=== PATIENT | female | born 1960 | race Caucasian/White ===

== ENCOUNTER 2017-05-05 07:43 | Emergency (ER) | payer SELFPAY ==
[~2017-05-05] VITALS: Ht 157.5 cm; Wt 67.0 kg
[2017-05-05 07:48] VITALS: Ht 157.5 cm; Wt 67.0 kg
[2017-05-05] MEDS ORDERED: SOD CHLORIDE 0.9% 500 ML IV STA (08:16)
[2017-05-05] MEDS ORDERED: ONDANSETRON 4 MG INJ IV STA (08:16)
[2017-05-05] MEDS ORDERED: MECLIZINE 12.5 MG TAB PO ONE (08:30)
--- NOTE | 2017-05-05 08:45 | ERD ---
ER Documentation Chief Complaint Chief Complaint DIZZINESS AND N/V R EAR DISCOMFORT HPI Patient is a 56-year-old female with a past medical history of hypertension who presents ED for concerns of right ear fullness as well as dizziness and nausea and vomiting. Patient states 4 days ago she developed right ear fullness. Patient denies any ear pain or drainage. Patient states this morning around 1 AM she started to feel extremely nauseous and dizzy. Patient describes a room spinning sensation. Patient states with any positional changes her dizziness becomes worse. Patient does admit to 3 episodes of nonbloody nonbilious vomiting. Patient denies any fevers, chills, chest pain, shortness of breath, left upper extremity pain, LOC. Patient does admit to light sensitivity. Patient denies any headache. Patient denies any unilateral weakness, slurred speech, stool incontinence, urinary incontinence or dysphagia. Patient denies any abdominal pain or ROS All systems reviewed and are negative except as per history of present illness. Medications Home Meds Active Scripts Ondansetron (Ondansetron Odt) 4 Mg Tab.rapdis, 4 MG PO Q6H Y for NAUSEA AND/OR VOMITING, #10 TAB Prov:ASHLEY RODRIGUEZ PA-C 05/05/17 Meclizine Hcl* (Antivert*) 12.5 Mg Tab, 12.5 MG PO Q6H Y for DIZZINESS, #20 TAB Prov:ASHLEY RODRIGUEZ PA-C 05/05/17 Allergies Allergies: Coded Allergies: No Known Allergy (Unverified , 05/05/17) PMhx/Soc History of Surgery: No Anesthesia Reaction: No Hx Neurological Disorder: No Hx Respiratory Disorders: No Hx Cardiac Disorders: Yes (htn) Hx Psychiatric Problems: No Hx Miscellaneous Medical Probl: No Hx Alcohol Use: No Hx Substance Use: No Hx Tobacco Use: No Physical Exam Vitals Vital Signs Date Time Temp Pulse Resp B/P Pulse Ox O2 Delivery O2 Flow Rate FiO2 05/05/17 10:23 98.2 82 18 101/56 96 Room Air 05/05/17 07:48 97.7 67 18 121/75 96 Physical Exam GENERAL: Well-developed, well-nourished female. HEAD: Normocephalic, atraumatic. No deformities or ecchymosis. EYE: Pupils equal, round, and reactive to light. EOMs intact. No conjunctival erythema. No eye discharge. ENT: External ear without any masses or tenderness. Auditory canals clear bilaterally. TM visualized bilaterally, non-erythematous, non-bulging. Nasal mucosa pink with no discharge. Oropharynx is pink without any tonsillar erythema or exudates. No uvula deviation. No kissing tonsils. NECK: Supple. No meningismus. Normal ROM of the neck. LUNG: Clear to auscultation bilaterally. No rhonchi, wheezing, rales or coarse breath sounds. HEART: Regular rate and rhythm. No murmurs, rubs or gallops. EXTREMITIES: Equal pulses bilaterally. No peripheral clubbing, cyanosis or edema. No unilateral leg swelling. NEUROLOGIC: Alert and oriented x3, cooperative. Mood and affect appropriate to situation. Cranial nerves II through XII are grossly intact. Normal speech. Motor exam: 5/5 strength in upper and lower extremities. Sensory exam: Sensation intact to light touch on all four extremities. Cerebellar function exam: Rapid alternating movements intact. No dysmetria on uawqpz-ug-naow and mrfi-nb-mvcc test. Steady gait. No pronator drift. SKIN: Normal color. Warm and dry. No rashes or lesions. Result Diagram: 05/05/17 0830 05/05/17 0830 Results 24 hrs Laboratory Tests Test 05/05/17 08:30 White Blood Count 7.610^3/ul Red Blood Count 4.7510^6/ul Hemoglobin 13.4g/dl Hematocrit 41.0% Mean Corpuscular Volume 86.3fl Mean Corpuscular Hemoglobin 28.2pg Mean Corpuscular Hemoglobin Concent 32.7g/dl Red Cell Distribution Width 13.3% Platelet Count 53067^3/UL Mean Platelet Volume 10.0fl Neutrophils % 81.2% Lymphocytes % 15.5% Monocytes % 2.2% Eosinophils % 0.4% Basophils % 0.3% Nucleated Red Blood Cells % 0.0/100WBC Neutrophils # 6.110^3/ul Lymphocytes # 1.210^3/ul Monocytes # 0.210^3/ul Eosinophils # 0.010^3/ul Basophils # 0.010^3/ul Nucleated Red Blood Cells # 0.010^3/ul Sodium Level 141mmol/L Potassium Level 3.7mmol/L Chloride Level 103mmol/L Carbon Dioxide Level 25mmol/L Anion Gap 17 Blood Urea Nitrogen 17mg/dl Creatinine 0.61mg/dl Glucose Level 139mg/dl Calcium Level 9.4mg/dl Troponin I < 0.012ng/ml Current Medications Medications (Trade) Dose Ordered Sig/Link Route PRN Reason Start Time Stop Time Status Last Admin Dose Admin Sodium Chloride (NS) 500 ml @ 500 mls/hr Q1H STAT IV 05/05/17 08:16 05/05/17 09:15 DC 05/05/17 08:43 Ondansetron HCl (Zofran Inj) 4 mg ONCE STAT IV 05/05/17 08:16 05/05/17 08:20 DC 05/05/17 08:42 Meclizine HCl (Antivert) 12.5 mg ONCE ONCE PO 05/05/17 08:30 05/05/17 08:31 DC 05/05/17 08:43 Procedures/MDM ED COURSE: The patient was stable throughout ED course. I kept the patient and/or family informed of laboratory and diagnostic imaging results throughout the ED course. EKG: Read by Dr. Contreras, attending physician. EKG shows normal sinus rhythm at a rate of 60 bpm, incomplete right bundle branch block. No arrhythmias, acute ST elevations or T wave changes were noted. DIAGNOSTIC IMAGING: Read by radiologist. Patient: ROSETTA FLORIAN : 1960 Age: 56 Sex: F [id number] DOS: 05/05/17815 Ordering MD: ASHLEY RODRIGUEZ PA-C Location: [facility] Room/Bed: PROCEDURE: CT Brain without contrast. CLINICAL INDICATION: Dizziness. TECHNIQUE: A CT of the brain was performed on a [employer] Mo[employer] CT scanner utilizing a low dose technique with axial imaging from the skull base through the vertex without IV contrast. Multiplanar reformatted images were made. Images were reviewed on a PACS workstation. The CTDIvol is 44.6 mGy and the DLP is 630.2 mGycm. DICOM images are available. One or more of the following dose reduction techniques were used: Automated exposure control. Adjustment of the mA and/or kV according to patient size. Use of iterative reconstruction technique. COMPARISON: None FINDINGS: The fourth ventricle is normal in size. The third and lateral ventricles are normal in size and configuration. The brain parenchyma is normal. The visible portions of the globes and extraocular muscles are normal. The paranasal sinuses are clear. The mastoid air cells and internal auditory canals are normal. The bony calvarium is intact. IMPRESSION: 1. Negative CT scan of the brain without contrast. RPTAT:AAJJ Physician Antoinette Date Time Electronically viewed and signed by Melquiades Crisostomo Physician on 05/05/2017 09:18 JM/ CC: ASHLEY RODRIGUEZ PA-C PROCEDURES: None. MEDICATIONS GIVEN: IV fluids, Zofran, meclizine Patient tolerated medication well with no adverse reactions. MEDICAL DECISION MAKING: This is a 56-year-old female with a history of hypertension presents ED for concerns of right ear fullness, nausea, vomiting and dizziness. Vital signs were reviewed. Patient was afebrile. Patient was not hypoxic. Patient reported that her dizziness felt as if the room was spinning.The dizziness is worse with positional changes or movement. At rest, patient has minimal dizziness. The patient denied hearing loss, diplopia or dysphagia. Full neuro exam was normal. CT scan of the brain was unremarkable. Blood work was obtained. CBC showed no evidence of systemic infection or severe anemia. BMP showed no evidence of electrolyte abnormalities, severe acidosis, alkalosis, renal failure. EKG showed normal sinus rhythm. Reviewed by ED attending. Troponin was negative. CT brain was negative. Patient was given IV fluids as well as Zofran and meclizine. Patient had significant improvement in dizziness and nausea after receiving these medications. Given these findings, the patient's presentation is most consistent with benign paroxysmal positional vertigo. Low suspicion for ACS, pericarditis, arrhythmia, intracranial hemorrhage, cerebral infarct, intracranial mass, multiple sclerosis, labyrinthitis, vestibular neuritis, Meniere's disease, ear foreign body or acute otitis media. PRESCRIPTIONS: Meclizine Zofran DISCHARGE: At this time, patient is stable for discharge and outpatient management. I have instructed the patient to follow-up with his/her primary care physician in 1-2 days. If symptoms persist, patient may need to see a specialist for further examinations and testing. I have instructed the patient to promptly return to the ER at any time for any new or worsening symptoms including increased increased pain, fever, nausea, vomiting, numbness, weakness, slurred speech, LOC. The patient and/or family expressed understanding of and agreement with this plan. All questions were answered. Home care instructions were provided. Disclaimer: Inadvertent spelling and grammatical errors are likely due to EHR/ dictation software use and do not reflect on the overall quality of patient care. Also, please note that the electronic time recorded on this note does not necessarily reflect the actual time of the patient encounter. Departure Diagnosis: Primary Impression: BPPV (benign paroxysmal positional vertigo) Laterality: right Qualified Code: H81.11 - Benign paroxysmal positional vertigo of right ear Condition: Stable Patient Instructions: Inner Ear Problems: Causes of Dizziness (Vertigo) Additional Instructions: Call your primary care doctor TOMORROW for an appointment during the next 1-2 days.See the doctor sooner or return here if your condition worsens before your appointment time. ASHLEY RODRIGUEZ PA-C May 05, 2017 08:45
[2017-05-05 09:10] LABS: BASOPHILS % 0.3 % (0.0-2.0); EOSINOPHILS % 0.4 % (0.0-7.0); HEMOGLOBIN 13.4 g/dl (12.0-16.0); LYMPHOCYTES # 1.2 10^3/ul (0.8-2.9); LYMPHOCYTES % 15.5 % (15.0-51.0); MEAN CORPUSCULAR HEMOGLOBIN 28.2 pg (29.0-33.0); MEAN CORPUSCULAR HGB CONC 32.7 g/dl (32.0-37.0); MEAN CORPUSCULAR VOLUME 86.3 fl (82.0-101.0); MONOCYTE # 0.2 10^3/ul (0.3-0.9); MONOCYTES % 2.2 % (0.0-11.0); NEUTROPHIL # 6.1 10^3/ul (1.6-7.5); NEUTROPHILS % 81.2 % (39.0-77.0); PLATELET COUNT 364 10^3/UL (140-415); RED BLOOD COUNT 4.75 10^6/ul (4.20-5.40); RED CELL DISTRIBUTION WIDTH 13.3 % (11.5-14.5); WHITE BLOOD COUNT 7.6 10^3/ul (4.8-10.8)
--- NOTE | 2017-05-05 09:19 | RADRPT ---
PROCEDURE: CT Brain without contrast. CLINICAL INDICATION: Dizziness. TECHNIQUE: A CT of the brain was performed on a [employer] CT scanner [employer] a low dose technique with axial imaging from the skull base through the vertex without IV contras t. Multiplanar reformatted images were made. Images were reviewed on a PACS workstation. The CTDI vol is 44.6 mGy and the DLP is 630.2 mGycm. DICOM images are available. One or more of the following dose reduction techniques were used: Automated exposure control. Adjustment of the mA and/or kV according to patient size. Use of iterative reconstruction technique. COMPARISON: None FINDINGS: The fourth ventricle is normal in size. The third and lateral ventricles are normal in size and con figuration. The brain parenchyma is normal. The visible portions of the globes and extraocular muscles are normal. The paranasal sinuses are cl ear. The mastoid air cells and internal auditory canals are normal. The bony calvarium is intact. IMPRESSION: 1. Negative CT scan of the brain without contrast. RPTAT:AAJJ Physician Antoinette Date Time Electronically viewed and signed by Physician Antoinette on 05/05/2017 09:18 /
[2017-05-05 09:24] LABS: ANION GAP 17 (8-16); BLOOD UREA NITROGEN 17 mg/dl (7-20); CALCIUM 9.4 mg/dl (8.4-10.2); CARBON DIOXIDE 25 mmol/L (21-31); CHLORIDE 103 mmol/L (97-110); CREATININE 0.61 mg/dl (0.44-1.00); GLUCOSE 139 mg/dl (70-220); POTASSIUM 3.7 mmol/L (3.5-5.1); SODIUM 141 mmol/L (135-144)
[2017-05-05 09:37] LABS: TROPONIN-I < 0.012 ng/ml (0.00-0.12)
[2017-05-05] MEDS ORDERED: MECL12.574 PO (09:50)
[2017-05-05] MEDS ORDERED: ONDA4TAB14 PO (09:50)
[2017-05-05 10:23] VITALS: BP 101/56; PULSE 82; RESP 18; TEMP 98.2
== END 2017-05-05 10:23 | disposition home or self-care (01) ==
LOC: FTE 07:43
DX: H81.11 Benign paroxysmal vertigo, right ear (principal); I10 Essential (primary) hypertension
CPT/HCPCS: 36415; 70450; 80048; 84484; 85025; 96374; 99285; J2405; J7040; 93005